=== PATIENT | female | born 1965 | race Caucasian/White ===

== ENCOUNTER → 2020-09-11 | Outpatient (CLI) | payer OTHER | LOC: HEART 5 07-30 13:30 → EXRD 07-30 14:30 → HEART 5 08-21 13:30 → EXRD 08-21 14:30 → HEART 5 13:15 | DX: I73.9 Peripheral vascular disease, unspecified (principal); I65.23 Occlusion and stenosis of bilateral carotid arteries | CPT/HCPCS: 93880; 93925; 93970 ==

== ENCOUNTER → 2021-10-18 | Outpatient (CLI) | payer OTHER ==
[~2021-10-18] MED LIST: COREG25 MG PO; COZAAR100 MG PO; DOCUSATE SODIU250 MG PO; GLYBURIDE5 MG PO; HYDROCODONE-AC1 EACH PO; IBUPROFEN600 MG PO; JARDIANCE10 MG PO; LEVOTHYROXINE50 MCG PO; METFORMIN HCL500 M2 PO; NEXIUM40 MG PO; OMEGA ACID ETHYL PO; PERCOCET 5-3251 EACH PO; PROAIR HFA8.5 GM INH; VITAMIN D PO; XYZAL5 MG PO; ZOCOR20 MG PO
[2021-10-18 11:21] LABS: HEMOGLOBIN 14.3 gm/dl (12.3-15.3); RED BLOOD COUNT 4.89 M/UL (4.00-5.10); WHITE BLOOD COUNT 7.9 K/UL (4.5-11.0)
[2021-10-18 11:48] LABS: BUN/CREATININE RATIO 23 (0-10)
== END ==
LOC: OPSV2 10:00
PROVIDERS: Obstetrics & Gynecology
DX: Z01.818 Encounter for other preprocedural examination (principal); R10.2 Pelvic and perineal pain
CPT/HCPCS: 71046; 80053; 81001; 85025; 93005

== ENCOUNTER → 2021-10-21 | Day surgery (SDC) | payer OTHER | END | disposition home or self-care (01) | LOC: OR 04:59 | DX: N72 Inflammatory disease of cervix uteri (principal); N80.0 Endometriosis of uterus; N81.9 Female genital prolapse, unspecified; N39.46 Mixed incontinence; R10.2 Pelvic and perineal pain; I10 Essential (primary) hypertension; E78.5 Hyperlipidemia, unspecified; K21.9 Gastro-esophageal reflux disease without esophagitis; J44.9 Chronic obstructive pulmonary disease, unspecified; E11.9 Type 2 diabetes mellitus without complications; E03.9 Hypothyroidism, unspecified; E78.00 Pure hypercholesterolemia, unspecified; K76.0 Fatty (change of) liver, not elsewhere classified; Z87.891 Personal history of nicotine dependence; Z88.5 Allergy status to narcotic agent; Z79.84 Long term (current) use of oral hypoglycemic drugs; Z79.899 Other long term (current) drug therapy | CPT/HCPCS: 82962; J0690; J1100; J1170; J1885; J2001; J2250; J2270; J2370; J2405; J2550; J2704; J2710; J3010 ==